=== PATIENT | female | born 1965 | race Hispanic/Latino ===

== ENCOUNTER 2021-10-11 07:22 | Observation (INO) | payer BC ==
[2021-10-09 14:50] LABS: BASOPHILS # (AUTO) 0.1 (0.0-0.1); BASOPHILS % 1.1 % (0.0-1.0); EOSINOPHILS # (AUTO) 0.2 (0.0-0.4); EOSINOPHILS % 4.2 % (0.0-6.0); HEMATOCRIT 42.2 % (34.2-44.1); HEMOGLOBIN 13.4 g/dL (12.0-16.0); LYMPHOCYTES # (AUTO) 1.6 (1.0-3.2); LYMPHOCYTES % 28.6 % (18.0-39.1); MEAN CORPUSCULAR HEMOGLOBIN 30.2 pg (28-32); MEAN CORPUSCULAR HGB CONC 31.8 g/dL (31-35); MONOCYTES # (AUTO) 0.6 (0.2-0.8); MONOCYTES % 10.7 % (4.4-11.3); NEUTROPHILS # (AUTO) 3.1 (2.1-6.9); PLATELET COUNT 298 x10e3/uL (140-360); RED BLOOD COUNT 4.44 x10e6/uL (3.6-5.1); RED CELL DISTRIBUTION WIDTH 12.4 % (11.7-14.4)
[2021-10-09 15:36] LABS: ANION GAP 12.3 mmol/L (8-16); CREATININE, SERUM 0.79 mg/dL (0.57-1.11); POTASSIUM 4.3 mmol/L (3.5-5.1)
[2021-10-09 15:51] LABS: INR 0.87; PROTHROMBIN TIME 12.6 seconds (11.9-14.5)
[~2021-10-11] VITALS: Ht 160 cm; Wt 85.3 kg
[2021-10-11] VITALS (8 sets, daily range): BP systolic 118–141; BP diastolic 68–81
[~2021-10-11 07:22] MED LIST: LISINOPRIL10 MG PO; MELOXICAM7.5 MG PO
[2021-10-11] MEDS ORDERED: Vancomycin IV 1 GM VIAL ONE (08:40)
[2021-10-11] MEDS ORDERED: THROMBIN FOR SOLN 5,000 UNIT VIAL ONE (08:40)
[2021-10-11] MEDS ORDERED: LIDOCAINE 1% W/EPINEPHRINE 20 ML VIAL ONE (08:40)
[2021-10-11] MEDS ORDERED: HYDROCODON-ACE1 EA12 PO (11:51)
[2021-10-11] MEDS ORDERED: POVIDONE IODINE 0.05% 0.05 % ML PO ONE (11:54)
[2021-10-11] MEDS ORDERED: LIDOCAINE HCL (LTA) 4 ML SOLN ONE (11:54)
[2021-10-11] MEDS ORDERED: NEOSTIGMINE 1 MG/ML 10ML VIAL ONE (11:54)
[2021-10-11] MEDS ORDERED: LIDOCAINE HCL 2% LOCAL INJ 5 ML SDV VIAL INJ ONE (11:54)
[2021-10-11] MEDS ORDERED: ONDANSETRON HCL INJ 2MG/ML 2ML 2 MG/ML VIAL ONE (11:54)
[2021-10-11] MEDS ORDERED: ACETAMINOPHEN 1000 MG/100 ML IV ONE (11:54)
[2021-10-11] MEDS ORDERED: SEVOFLURANE INHAL SOLN 250 ML PEN BTL ONE (11:54)
[2021-10-11] MEDS ORDERED: PROPOFOL IV EMULSION 10 MG/ML 20 ML VIAL ONE (11:54)
[2021-10-11] MEDS ORDERED: ROCURONIUM BROMIDE 10 MG/ML 5ML VIAL IV ONE (11:54)
[2021-10-11] MEDS ORDERED: GLYCOPYRROLATE INJ 0.2 MG/ML VIAL ONE (11:54)
[2021-10-11] MEDS ORDERED: DEXAMETHASONE SOD PHOS INJ 4 MG/ML SDV ONE (11:54)
[2021-10-11] MEDS ORDERED: CARISOPRODOL 350 MG TAB PO PRN (12:00)
[2021-10-11] MEDS ORDERED: ACETAMINOPHEN 325 MG TAB PO PRN (12:00)
[2021-10-11] MEDS ORDERED: PROMETHAZINE HCL (IM) 25 MG/ML VIAL IM PRN (12:00)
[2021-10-11] MEDS ORDERED: ONDANSETRON HCL INJ 2MG/ML 2ML 2 MG/ML VIAL IV PRN (12:00)
[2021-10-11] MEDS ORDERED: OXYCODONE/ACETAMINOPHEN 5-325 1 EACH TABLET PO PRN (12:00)
[2021-10-11] MEDS ORDERED: MAGNESIUM/ALUMINUM/SIMETHICONE 30 ML UDC PO PRN (12:00)
[2021-10-11] MEDS ORDERED: HYDROMORPHONE 2MG/ML 2 MG/ML ML IV PRN (12:00)
[2021-10-11] MEDS ORDERED: LACTATED RINGER'S 1,000 ML IV SCH (12:00)
[2021-10-11] MEDS ORDERED: ZOLPIDEM TARTRATE 5 MG TAB PO PRN (12:00)
[2021-10-11] MEDS ORDERED: MORPHINE SULFATE 5 MG/ML VIAL IM PRN (12:00)
[2021-10-11] MEDS ORDERED: FENTANYL CITRATE/PF 100MCG/2 ML INJ ONE ×2 (12:33→13:12)
[2021-10-11] MEDS ORDERED: MIDAZOLAM HCL 2 MG/2 ML VIAL ONE (12:33)
[2021-10-12] VITALS: BP 154/92
[2021-10-12 04:00] VITALS: BP 137/74
[2021-10-12 07:42] VITALS: BP 141/77
[2021-10-12] MEDS ORDERED: MELOXICAM 7.5 MG TAB PO SCH (09:00)
[2021-10-12] MEDS ORDERED: LISINOPRIL 20 MG TAB PO SCH (09:00)
== END 2021-10-12 09:32 | disposition home or self-care (01) ==
LOC: OR 07:22 → PACU V 12:36 → MED/SURG2 13:43
PROVIDERS: ADMIT Neurological Surgery; ATTEND Neurological Surgery
DX: M51.17 Intervertebral disc disorders with radiculopathy, lumbosacral region (principal); M51.27 Other intervertebral disc displacement, lumbosacral region; I10 Essential (primary) hypertension; Z01.810 Encounter for preprocedural cardiovascular examination; Z01.812 Encounter for preprocedural laboratory examination; Z01.818 Encounter for other preprocedural examination; Z20.822 Contact with and (suspected) exposure to COVID-19
CPT/HCPCS: 36415; 63047; 71046; 72020; 80048; 81025; 85025; 85610; 85730; 86850; 86900; 88304; 93005; G0378 ×2; J0131; J0690 ×2; J1100; J1170; J2001; J2250; J2405; J2704; J2710; J3010; J3370; J7121; U0002